=== PATIENT | male | born 1985 | race Caucasian/White ===

== ENCOUNTER 2022-04-15 12:42 | Emergency (ER) | payer SELFPAY ==
[2022-04-15 12:47] VITALS: BP 195/123; PULSE 64; RESP 24; TEMP 36.3; O2SAT 99
--- NOTE | 2022-04-15 12:54 | W.ED.GENADLT ---
HPI - General Adult General: Chief complaint: Urogenital-Male Stated complaint: pain in the stomach and by the kidney Time Seen by Provider: 04/15/22 12:54 History of Present Illness: Mr. Burton is a 36-year-old gentleman without significant past medical history presenting to the emergency department due to abdominal pain. Onset of symptoms was approximately 1 hour prior to arrival where he notes sudden onset right flank pain with radiation to the groin. Since onset symptoms have been constant and severe. Unrelenting. Associated nausea, diaphoresis, vomiting. 1 possible prior episode though no history of diagnosed kidney stones. No other specific changes in health, exacerbating, or alleviating factors identified. Onset (ago): hour(s) Location: abdomen and right Radiation: abdomen Severity: severe Quality: stabbing and sharp Pain Consistency: constant Relieving factors: none Exacerbating factors: none Associated symptoms: Reports nausea and vomiting Review of Systems General: Reports: 10 or more systems reviewed and unremarkable except in HPI and below GI: Reports: nausea and vomiting PFS ED PFSH: Medical History Anxiety Surgical History No significant past surgical history Social History Smoking and tobacco status: never smoked Physical Exam Const: COMMON NORMALS: alert GENERAL APPEARANCE: cooperative, well developed and in distress (pain) HENMT: COMMON NORMALS: normocephalic and atraumatic HEAD & SCALP: normocephalic and atraumatic THROAT: posterior oropharynx normal Eye: COMMON NORMALS: conjunctivae normal CONJUNCTIVA: Yes conjunctivae normal SCLERA: sclerae normal Neck/C-Spine: COMMON NORMALS: supple GENERAL: Yes trachea midline Resp: COMMON NORMALS: clear to auscultation bilaterally EFFORT & INSPECTION: Yes able to speak in complete sentences AUSCULTATION: clear to auscultation bilaterally Cardio: COMMON NORMALS: regular rate and regular rhythm RATE: regular rate RHYTHM: regular rhythm GI: COMMON NORMALS: Soft to palpation PALPATION: Yes Soft to palpation, Yes Tenderness to palpation present (GI), No Guarding due to palpation present (GI) and No Rigid due to palpation Extremity: GENERAL: Yes normal exam except as noted and No edema Neuro: COMMON NORMALS: moves all extremities SENSORIUM/ORIENTATION: Yes alert and No Orientation impaired Psych: COMMON NORMALS: mental status grossly normal and Normal thought process present THOUGHT PROCESS: Normal thought process present Course Vital Signs: Vital signs: Vital Signs Temperature 97.4 F L 04/15/22 12:47 Pulse Rate 88 04/15/22 16:15 Respiratory Rate 16 04/15/22 16:15 Blood Pressure 170/87 04/15/22 16:15 Pulse Oximetry 96 04/15/22 16:15 Oxygen Delivery Me thod 04/15/22 14:45 [facility] - General Adult Medical Decision Making 36-year-old gentleman presenting with abdominal pain that was sudden onset. Appears quite uncomfortable due to pain. No evidence of acute surgical abdomen. No leukocytosis, mild hemoconcentration. No significant metabolic derangement. Urinalysis with hematuria without evidence of urinary tract infection. CT scan notable for ureterolithiasis. Incidental findings discussed. Patient proved with analgesia and antiemetic. He was also given fluids and Flomax upon diagnosis of kidney stone. Mostly etiology of patient's symptoms is ureterolithiasis. Given size of stone and location this will most likely pass on its own however possible need for follow-up with urology was discussed. The results of ED evaluation were discussed with the patient including prescriptions and/or symptomatic cares (if applicable) including appropriate and responsible use, followup plan, and return precautions. The patient verbalized understanding and felt safe for discharge. Medical Records I reviewed the patient's medical records. Lab Data I reviewed the patient's lab results. 04/15/22 13:01 04/15/22 13:01 Radiology Impressions Abdomen/Pelvis CT 04/15/22 13:16 IMPRESSION: 1. Very mild RIGHT hydroureteronephrosis secondary to 4 mm calcification in the distal ureter. 2. Normal appendix. 3. There are additional nonobstructing very tiny, 2 mm, calcifications within the renal pelves. 4. Marked hepatomegaly and hepatic steatosis. Laboratory Results WBC 7.3 10^3/uL (4.0-10.0) 04/15/22 13:01 RBC 5.71 10^6/uL (4.1-5.3) H 04/15/22 13:01 Hgb 16.9 g/dL (11.7-16.6) H 04/15/22 13:01 Hct 52.3 % (42.0-52.0) H 04/15/22 13:01 MCV 91.6 fl (80-94) 04/15/22 13:01 MCH 29.6 pg (28.0-34.0) 04/15/22 13:01 MCHC 32.3 g/dL (30.0-36.0) 04/15/22 13:01 RDW 12.8 % (12.1-15.1) 04/15/22 13:01 Plt Count 251 10^3/cmm (130-400) 04/15/22 13:01 MPV 9.5 fL (7.4-10.4) 04/15/22 13:01 Neut % (Auto) 60.4 % 04/15/22 13:01 Lymph % (Auto) 30.4 % 04/15/22 13:01 [place] % (Auto) 7.6 % 04/15/22 13:01 Eos % (Auto) 0.7 % 04/15/22 13:01 Baso % (Auto) 0.6 % 04/15/22 13:01 Neut # (Auto) 4.40 10^3/uL (1.8-7.7) 04/15/22 13:01 Lymph # (Auto) 2.2 10^3/uL (0.8-4.8) 04/15/22 13:01 [place] # (Auto) 0.6 10^3/uL (0.2-0.9) 04/15/22 13:01 Eos # (Auto) 0.1 10^3/uL (0.0-0.8) 04/15/22 13:01 Baso # (Auto) 0.0 10^3/uL (0.0-0.1) 04/15/22 13:01 Nucleated RBC % (auto) 0 % 04/15/22 13:01 Nucleated RBCs # 0.0 /100WBC 04/15/22 13:01 Sodium 138 mmol/L (136-145) 04/15/22 13:01 Potassium 4.2 mmol/L (3.5-5.1) 04/15/22 13:01 Chloride 96 mmol/L (98-107) L 04/15/22 13:01 Carbon Dioxide 28 mmol/L (22-29) 04/15/22 13:01 Anion Gap 18.2 (5-19) 04/15/22 13:01 BUN 13 mg/dL (6-20) 04/15/22 13:01 Creatinine 1.1 mg/dL (0.7-1.2) 04/15/22 13:01 GFR Calculation 76.2 mL/min (90-130) L 04/15/22 13:01 Glucose 152 mg/dL (65-115) H 04/15/22 13:01 Calculated Osmolality 289 mOsm/kg (285-295) 04/15/22 13:01 Calcium 10.4 mg/dL (8.5-10.5) 04/15/22 13:01 Total Bilirubin 0.4 mg/dL (0.15-1.2) 04/15/22 13:01 AST 43 U/L (0-40) H 04/15/22 13:01 ALT 119 U/L (0-41) H 04/15/22 13:01 Alkaline Phosphatase 98 U/L (40-130) 04/15/22 13:01 Total Protein 8.3 g/dL (6.6-8.7) 04/15/22 13:01 Albumin 5.0 g/dL (3.5-5.2) 04/15/22 13:01 Globulin 3.3 g/dL (1.3-4.6) 04/15/22 13:01 Urine Color Yellow (Yellow) 04/15/22 13:01 Urine Appearance Clear (CLEAR) 04/15/22 13:01 Urine pH 5 (5-7) 04/15/22 13:01 Ur Specific [place] 1.030 (1.005-1.030) 04/15/22 13:01 Urine Protein Neg (Negative) 04/15/22 13:01 Urine Glucose (UA) Norm (Normal) 04/15/22 13:01 Urine Ketones Negative (Negative) 04/15/22 13:01 Urine Blood 3+ (Negative) H 04/15/22 13:01 Urine Nitrate Negative (Negative) 04/15/22 13:01 Urine Bilirubin Neg (Negative) 04/15/22 13:01 Urine Urobilinogen Norm mg/dL (Negative) 04/15/22 13:01 Ur Leukocyte Esterase Negative (Negative) 04/15/22 13:01 Urine RBC 25-40 /hpf (0-2) H 04/15/22 13:01 Urine WBC 0-4 /hpf (0-5) H 04/15/22 13:01 Ur Squamous Epith Cells 0-4 /hpf (0-5) H 04/15/22 13:01 Amorphous Sediment Not Reportable 04/15/22 13:01 Urine Bacteria None /hpf (NONE) 04/15/22 13:01 Discharge Plan Discharge Patient Disposition: Home Clinical Impression: Ureterolithiasis Condition: Stable Prescriptions: New ondansetron 4 mg tablet,disintegrating 4 mg PO Q8H PRN (Reason: nausea and vomiting) Qty: 15 0RF oxycodone 5 mg tablet 5 mg PO Q4H PRN (Reason: pain) Qty: 18 0RF Flomax 0.4 mg capsule 0.4 mg PO .qhs Qty: 20 0RF No Action escitalopram oxalate [Lexapro] 20 mg tablet 20 mg PO DAILY 90 Days Qty: 90 1RF Discharge Orders: Discharge ED (Routine); Ordered 04/15/22 Ordered By: Ankit Lambert Discharge Diet: Usual diet Discharge Activity: Increase activity as tolerated Patient Instructions: Kidney Stones (ED), How to Strain Your Urine (ED), Opioid Safety, Pain Management Activity Restrictions/Additional Instructions: Thank you for visiting the emergency department. You were seen in evaluated for flank pain. You are found to have a kidney stone in the distal ureter which is 4 mm. This should likely pass on its own and we are pleased that your symptoms improved with treatment. Please strain your urine. I will message case management for follow-up with urology. Return to the emergency department for infectious symptoms, uncontrolled symptoms, or anything else that you are concerned about a feel needs emergency department evaluation. Coding Level of Care Code ED [employer] Associate for Jonnie Fwd Exam Comprehensive
[2022-04-15 13:00] VITALS: BP 195/123; PULSE 98; RESP 22; O2SAT 98
[2022-04-15] MEDS: HYDROmorphone 1 mg/mL INJ 1 mL 0.5 MG IVP ×2 (13:09→13:42)
[2022-04-15] MEDS: ondansetron 2 mg/ML SDV 2 mL 4 MG IVP (13:09)
[2022-04-15 13:12] LABS: Add Urine Microscopic? YES; Bilirubin Urine Neg (Negative); Blood Urine 3+ (Negative); Glucose Urine UA Norm (Normal); Ketones Urine Negative (Negative); Leukocyte Esterase Urine Negative (Negative); Nitrate Urine Negative (Negative); Protein Urine Neg (Negative); Urine Appearance Clear (CLEAR); Urine Color Yellow (Yellow); Urobilinogen Urine Norm (Negative); pH Urine 5 (5-7)
[2022-04-15 13:13] LABS: Basophils % 0.6 %; Eosinophils # 0.1 10^3/uL (0.0-0.8); Eosinophils % 0.7 %; Hematocrit 52.3 % (42.0-52.0); Hemoglobin 16.9 g/dL (11.7-16.6); Lymphocytes # 2.2 10^3/uL (0.8-4.8); Lymphocytes % 30.4 %; Mean Corpuscular HGB Conc 32.3 g/dL (30.0-36.0); Mean Corpuscular Hemoglobin 29.6 pg (28.0-34.0); Mean Corpuscular Volume 91.6 fl (80-94); Mean Platelet Volume 9.5 fL (7.4-10.4); Monocytes # 0.6 10^3/uL (0.2-0.9); Monocytes % 7.6 %; Neutrophils % 60.4 %; Nucleated Red Blood Cells % 0 %; Platelet Count 251 10^3/cmm (130-400); Red Blood Count 5.71 10^6/uL (4.1-5.3); Red Cell Distribution Width 12.8 % (12.1-15.1); White Blood Count 7.3 10^3/uL (4.0-10.0)
--- NOTE | 2022-04-15 13:16 | CT_ITS ---
WS: [id number] CT ABDOMEN AND PELVIS NONCONTRAST HISTORY: R flank pain, hematuria TECHNIQUE: Imaging performed through the abdomen and pelvis. Coronal and sagittal reformats are submi tted. All CT scans at [facility] use at least one of these dose optimization techniques: auto mated exposure control; mA and/or kV adjustment per patient size (includes targeted exams where dose is matched to clinical indication); or iterative reconstruction. DLP: 1005.00 mGy.cm COMPARISON: None available. Lower thorax: Lung bases are clear. Visualized heart is normal. No hiatal hernia. Liver: Markedly enlarged liver extends over length of 22.6 cm. Diffuse low attenuation from hepatic s teatosis with areas of sparing. No bile duct dilatation. Gallbladder: Normal gallbladder. Pancreas: Normal size and attenuation. Normal pancreatic duct. No pancreatitis or mass. Spleen: Normal. Adrenal glands: Normal. No mass. Right kidney: Normal size kidney. Very mild dilatation of the renal pelvis and RIGHT ureter with clementina ureteral stranding. 4 mm calcification in the distal ureter. There are a few additional very tiny miladys cifications within the renal pelvis. Left kidney: 2 mm calcification nonobstructing lower pole LEFT kidney. Aorta: Normal abdominal aorta, no aneurysm or atherosclerosis. No free fluid, intraperitoneal air or significant lymphadenopathy. GI tract: Normal appendix. No GI tract obstruction or diverticulosis. Moderately distended stomach wi th fluid. No small bowel obstruction. Abdominal wall: Negative. No hernia. Pelvis: Minimally distended urinary bladder. No adenopathy or free fluid. Osseous structures: Unremarkable. CT/CT kidney stone [id number] IMPRESSION: 1. Very mild RIGHT hydroureteronephrosis secondary to 4 mm calcification in th e distal ureter. 2. Normal appendix. 3. There are additional nonobstructing very tiny, 2 mm, calcifications within the renal pelves. 4. Marked hepatomegaly and hepatic steatosis.
--- NOTE | 2022-04-15 13:19 | PC.NURSE ---
PATIENT GIVEN ZOFRAN AND DILAUDID. PATIENT IMMEDIATELY STARTED VOMITING AND WAS ALSO PRODUCING VERY SMALL AMOUNTS OF BLOOD. PROVIDER NOTIFIED.
[2022-04-15 13:21] LABS: RBC Urine 25-40 /hpf (0-2); Squamous Epithelial Cell Urine 0-4 /hpf (0-5); WBC Urine 0-4 /hpf (0-5)
[2022-04-15 13:23] LABS: Add Urine Culture? Yes
[2022-04-15 13:31] LABS: Alanine Aminotransferase 119 U/L (0-41); Alkaline Phosphatase 98 U/L (40-130); Anion Gap 18.2 (5-19); Aspartate Amino Transferase 43 U/L (0-40); Blood Urea Nitrogen 13 mg/dL (6-20); Calcium 10.4 mg/dL (8.5-10.5); Carbon Dioxide 28 mmol/L (22-29); Chloride 96 mmol/L (98-107); Globulin 3.3 g/dL (1.3-4.6); Glomerular Filtration Rate 76.2 mL/min (90-130); Glucose 152 mg/dL (65-115); Osmolality Calculated 289 mOsm/kg (285-295); Potassium 4.2 mmol/L (3.5-5.1); Sodium 138 mmol/L (136-145); Total Bilirubin 0.4 mg/dL (0.15-1.2); Total Protein 8.3 g/dL (6.6-8.7)
[2022-04-15] MEDS: sodium chloride 0.9% 1,000 ML 999 ML IV (13:42)
[2022-04-15] MEDS: tamsulosin 0.4 mg Capsule PO (13:50)
[2022-04-15] MEDS: ketorolac 30 mg/mL INJ 15 MG IVP (13:51)
[2022-04-15 14:44] VITALS: RESP 18
[2022-04-15] MEDS: oxyCODONE 5 mg IR Tab/Cap PO (14:44)
[2022-04-15 14:45] VITALS: BP 165/109; PULSE 78; RESP 18; O2SAT 97
[2022-04-15] MEDS: fentaNYL 50 mcg/mL INJ 2mL IVP (15:19)
[2022-04-15 16:15] VITALS: BP 170/87; PULSE 88; RESP 16; O2SAT 96
== END 2022-04-15 16:17 | disposition home or self-care (01) ==
PROVIDERS: Emergency Provider Emergency Medicine
DX: N13.2 Hydronephrosis with renal and ureteral calculous obstruction (principal)
CPT/HCPCS: 74176; 80053; 81001; 85025; 87086; 96361; 96374; 96375; 96376; 99285; J1170; J1885; J2405; J3010; J7030

== ENCOUNTER 2023-11-30 06:17 | Emergency (ER) | payer BC, SELFPAY ==
[2023-11-30 06:18] VITALS: BP 190/119; PULSE 83; RESP 18; TEMP 36.7; O2SAT 98; BMI 33.2
[2023-11-30 06:31] VITALS: PULSE 80; O2SAT 97
--- NOTE | 2023-11-30 06:40 | CTR_ITS ---
PROCEDURE INFORMATION: Exam: CT Abdomen And Pelvis Without Contrast Exam date and time: 11/30/2023 6:54 AM Age: 38 years old Clinical indication: Abdominal pain; Flank; Left; Additional info: Left flank pain TECHNIQUE: Imaging protocol: Computed tomography of the abdomen and pelvis without contrast. Radiation optimization: All CT scans at this facility use at least one of these dose optimization techniques: automated exposure control; mA and/or kV adjustment per patient size (includes targeted exams where dose is matched to clinical indication); or iterative reconstruction. COMPARISON: CT kidney stone [id number] 04/15/2022 1:29 PM RADIATION DOSE METRICS: Total DLP (mGy-cm): 893.59 FINDINGS: Lungs: Lung bases are clear as visualized. Heart: Base of heart is unremarkable as visualized. Liver: Hepatomegaly. Gallbladder and biliary ducts: Diffuse hepatic steatosis, focal sparing at gallbladder fossa. Pancreas: Normal. No ductal dilation. Spleen: Normal. No splenomegaly. Adrenal glands: Normal. No mass. Kidneys and ureters: Punctate mineralization within the bilateral renal calices concerning for nonobstructive microlithiasis. Stomach and bowel: Mild fatty metaplasia of the ascending colon. Appendix: No evidence of appendicitis. Intraperitoneal space: Unremarkable. No free air. No significant fluid collection. Vasculature: Calcified pelvic phleboliths. Lymph nodes: Unremarkable. No enlarged lymph nodes. Urinary bladder: Bladder is decompressed. Reproductive: Central dystrophic calcification of the prostate. Bones/joints: Minimal degenerative change of the visualized osseous structures. Soft tissues: Unremarkable. CT/CT abdomen pelvis wo con [id number] IMPRESSION: 1. Bilateral nonobstructive micro-nephrolithiasis. 2. Mild fatty metaplasia of the ascending colon which can be seen in chronic inflammatory states, correlate clinically. 3. Redemonstrated diffuse hepatic steatosis with background hepatomegaly.
[2023-11-30 06:49] LABS: Basophils % 0.9 %; Eosinophils % 0.4 %; Hematocrit 48.2 % (37-53); Lymphocytes # 1.5 10^3/uL (0.8-4.8); Lymphocytes % 32.4 %; Mean Corpuscular HGB Conc 33.8 g/dL (30-55); Mean Corpuscular Hemoglobin 30.8 pg (27-33); Mean Corpuscular Volume 91.1 fl (82-101); Mean Platelet Volume 9.8 fL (7.4-10.4); Monocytes # 0.4 10^3/uL (0.2-0.9); Neutrophils # 2.61 10^3/uL (1.8-7.7); Neutrophils % 57.1 %; Nucleated Red Blood Cells % 0 %; Platelet Count 175 10^3/cmm (157-399); Red Blood Count 5.29 10^6/uL (3.85-5.65); Red Cell Distribution Width 13.2 % (12.1-15.1); White Blood Count 4.57 10^3/uL (3.29-11.43)
[2023-11-30 06:53] VITALS: BP 163/112; PULSE 78; RESP 18; O2SAT 94
--- NOTE | 2023-11-30 06:54 | W.ED.ABDPA2 ---
HPI - Abdominal Pain General: Chief Complaint: Abdominal Pain Stated Complaint: left side kidney pain Time Seen by Provider: 11/30/23 06:36 History of Present Illness: 38-year-old man with history of kidney stones who presents to the emergency room with left flank pain. He says it woke him up in the middle of the night. Has had intermittent intensity but has not ever relented. In the left flank and radiates into the left groin and abdomen area. He has had some nausea and vomiting. No dysuria. No fevers. No chest pain. No altered mental status. Review of Systems Narrative: Constitutional symptoms: Negative except as documented in HPI. Skin symptoms: Negative except as documented in HPI. Eye symptoms: Negative except as documented in HPI. ENMT symptoms: Negative except as documented in HPI. Respiratory symptoms: Negative except as documented in HPI. Cardiovascular symptoms: Negative except as documented in HPI. Gastrointestinal symptoms: Negative except as documented in HPI. Genitourinary symptoms: Negative except as documented in HPI. Musculoskeletal symptoms: Negative except as documented in HPI. Neurologic symptoms: Negative except as documented in HPI. Psychiatric symptoms: Negative except as documented in HPI. Endocrine symptoms: Negative except as documented in HPI. [facility] ED PFSH: Medical History Anxiety Surgical History No significant past surgical history Social History Smoking and tobacco/nicotine status: never used tobacco/nicotine Physical Exam Narrative: EXAM NARRATIVE: General: Alert, no acute distress. Skin: Warm, dry. Head: Normocephalic, atraumatic. Neck: Supple, trachea midline. Eye: Extraocular movements are intact. Ears, nose, mouth and throat: mucosa moist. Cardiovascular: Regular, Normal peripheral perfusion. Respiratory: Lungs are clear to auscultation, respirations are non-labored, breath sounds are equal, Symmetrical chest wall expansion. Gastrointestinal: Soft, left flank pain, Non distended Musculoskeletal: Normal ROM, no deformity. Neurological: Alert and oriented, No focal neurological deficit observed. Psychiatric: Cooperative, appropriate mood & affect. Course Vital Signs: Vital signs: Vital Signs Temperature 98.0 F 11/30/23 06:18 Pulse Rate 78 11/30/23 06:53 Respiratory Rate 22 H 11/30/23 08:32 Blood Pressure 163/112 11/30/23 06:53 Pulse Oximetry 96 11/30/23 08:32 Oxygen Delivery Me thod Room Air 11/30/23 06:53 MDM - Abdominal Pain Medical Decision Making Medical decision making: Differential diagnosis including but not limited to and based on the above HPI, review of systems and physical exam: Ureterolithiasis. Urinary tract infection. Appendicitis. Cholecystis. Musculoskeletal / back pain. Pyelonephritis Orders placed to evaluate differential diagnosis based on the above differential, HPI and physical exam Lab Review: Laboratory results were reviewed and interpreted by myself the emergency room physician. Urinalysis does not show significant hematuria. Lab work is otherwise normal. No renal failure. No leukocytosis. CT of the abdomen pelvis without contrast: There are nonobstructive micro nephrolithiasis but none in the ureters and no hydronephrosis. This was reviewed and interpreted by myself the emergency room physician. I also reviewed the radiology report. I reviewed the patient's medical record. Reexamination: Patient appears improved. No increased work of breathing. No altered mental status. No focal motor deficits. He is had no vomiting. Assessment and plan: Kidney stones -Most likely patient has passed a small kidney stone. ?Fluids, Zofran and Toradol. Patient said he was still having pain so Dilaudid was given - Discharged home - Discussed findings and plan with patient. Answered any questions. - All laboratory values were reviewed and interpreted personally by myself, the ER physician - All imaging was reviewed and interpreted personally by myself, the ER physician. - Evaluation and treatment of this problem were appropriate in the emergency setting Lab Data 11/30/23 06:22 11/30/23 06:22 Labs/Radiology: Radiology Impressions Abdomen/Pelvis CT 11/30/23 06:40 IMPRESSION: 1. Bilateral nonobstructive micro-nephrolithiasis. 2. Mild fatty metaplasia of the ascending colon which can be seen in chronic inflammatory states, correlate clinically. 3. Redemonstrated diffuse hepatic steatosis with background hepatomegaly. Laboratory Results WBC 4.57 10^3/uL (3.29-11.43) 11/30/23 06:22 RBC 5.29 10^6/uL (3.85-5.65) 11/30/23 06:22 Hgb 16.30 g/dL (11.27-16.99) 11/30/23 06:22 Hct 48.2 % (37-53) 11/30/23 06:22 MCV 91.1 fl (82-101) 11/30/23 06:22 MCH 30.8 pg (27-33) 11/30/23 06: MCHC 33.8 g/dL (30-55) 11/30/23 06:22 RDW 13.2 % (12.1-15.1) 11/30/23 06:22 Plt Count 175 10^3/cmm (157-399) 11/30/23 06:22 MPV 9.8 fL (7.4-10.4) 11/30/23 06:22 Neut % (Auto) 57.1 % 11/30/23 06:22 Lymph % (Auto) 32.4 % 11/30/23 06:22 [place] % (Auto) 9.0 % 11/30/23 06:22 Eos % (Auto) 0.4 % 11/30/23 06:22 Baso % (Auto) 0.9 % 11/30/23 06:22 Neut # (Auto) 2.61 10^3/uL (1.8-7.7) 11/30/23 06:22 Lymph # (Auto) 1.5 10^3/uL (0.8-4.8) 11/30/23 06:22 [place] # (Auto) 0.4 10^3/uL (0.2-0.9) 11/30/23 06:22 Eos # (Auto) 0.0 10^3/uL (0.0-0.8) 11/30/23 06:22 Baso # (Auto) 0.0 10^3/uL (0.0-0.1) 11/30/23 06:22 Nucleated RBC % (auto) 0 % 11/30/23 06:22 Nucleated RBCs # 0.0 /100WBC 11/30/23 06:22 Sodium 136 mmol/L (136-145) 11/30/23 06:22 Potassium 4.5 mmol/L (3.5-5.1) 11/30/23 06: Chloride 98 mmol/L (98-107) 11/30/23 06:22 Carbon Dioxide 25 mmol/L (22-29) 11/30/23 06:22 Anion Gap 17.5 (5-19) 11/30/23 06:22 BUN 12 mg/dL (6-20) 11/30/23 06:22 Creatinine 0.9 mg/dL (0.7-1.2) 11/30/23 06:22 GFR Calculation 95.0 mL/min (90-130) 11/30/23 06:22 Glucose 126 mg/dL (65-115) H 11/30/23 06:22 Calculated Osmolality 283 mOsm/kg (285-295) L 11/30/23 06:22 Calcium 9.6 mg/dL (8.5-10.5) 11/30/23 06:22 Total Bilirubin 0.3 mg/dL (0.15-1.2) 11/30/23 06:22 AST 28 U/L (0-40) 11/30/23 06:22 ALT 77 U/L (0-41) H 11/30/23 06:22 Alkaline Phosphatase 92 U/L (40-130) 11/30/23 06:22 Total Protein 8.2 g/dL (6.6-8.7) 11/30/23 06:22 Albumin 4.8 g/dL (3.5-5.2) 11/30/23 06:22 Globulin 3.4 g/dL (1.3-4.6) 11/30/23 06:22 Urine Color Yellow (Yellow) 11/30/23 06:34 Urine Appearance Cloudy (CLEAR) A 11/30/23 06:34 Urine pH 5 (5-7) 11/30/23 06:34 Ur Specific [place] 1.020 (1.005-1.030) 11/30/23 06:34 Urine Protein Trace (Negative) 11/30/23 06:34 Urine Glucose (UA) Norm (Normal) 11/30/23 06:34 Urine Ketones 1+ (Negative) H 11/30/23 06:34 Urine Blood Neg (Negative) 11/30/23 06:34 Urine Nitrate Negative (Negative) 11/30/23 06:34 Urine Bilirubin Neg (Negative) 11/30/23 06:34 Urine Urobilinogen 1 mg/dL (Negative) H 11/30/23 06:34 Ur Leukocyte Esterase Trace (Negative) H 11/30/23 06:34 Urine RBC 0-4 /hpf (0-2) H 11/30/23 06:34 Urine WBC 0-4 /hpf (0-5) H 11/30/23 06:34 Ur Squamous Epith Cells 0-4 /hpf (0-5) H 11/30/23 06:34 Amorphous Sediment 3+ /hpf 11/30/23 06:34 Urine Bacteria Trace /hpf (NONE) 11/30/23 06:34 Urine Mucus 1+ /hpf 11/30/23 06:34 All radiology interpretation(s) finalized by discharge Discharge Plan Discharge Patient Disposition: Home Clinical Impression: Kidney stones Condition: Stable Prescriptions: No Action prednisone 20 mg tablet 40 mg PO DAILY 5 Days Qty: 10 0RF Discharge Orders: Discharge ED (Routine); Ordered 11/30/23 Ordered By: Angela Leonardo Referrals: Luis Daniel Darby [Referring] - (Please call for follow-up with nephrology as you have other stones in your kidneys) Discharge Diet: Usual diet Discharge Activity: Resume usual activity Patient Instructions: Kidney Stones (ED) Coding Level of Care Code ED [employer] Sales Manager for Jonnie Sands
[2023-11-30 06:59] LABS: Alanine Aminotransferase 77 U/L (0-41); Albumin Level 4.8 g/dL (3.5-5.2); Alkaline Phosphatase 92 U/L (40-130); Anion Gap 17.5 (5-19); Aspartate Amino Transferase 28 U/L (0-40); Blood Urea Nitrogen 12 mg/dL (6-20); Calcium 9.6 mg/dL (8.5-10.5); Carbon Dioxide 25 mmol/L (22-29); Chloride 98 mmol/L (98-107); Creatinine Clr Calc Pharmacy 132.3156; Globulin 3.4 g/dL (1.3-4.6); Glucose 126 mg/dL (65-115); Osmolality Calculated 283 mOsm/kg (285-295); Potassium 4.5 mmol/L (3.5-5.1); Sodium 136 mmol/L (136-145); Total Bilirubin 0.3 mg/dL (0.15-1.2); Total Protein 8.2 g/dL (6.6-8.7)
[2023-11-30 07:12] LABS: Blood Urine Neg (Negative); Glucose Urine UA Norm (Normal); Ketones Urine 1+ (Negative); Nitrate Urine Negative (Negative); Protein Urine Trace (Negative); Urine Appearance Cloudy (CLEAR); Urine Color Yellow (Yellow); pH Urine 5 (5-7)
[2023-11-30] MEDS: ketorolac 30 mg/mL INJ IVP (07:12)
[2023-11-30] MEDS: ondansetron 2 mg/ML SDV 2 mL 4 MG IVP (07:12)
[2023-11-30] MEDS: sodium chloride 0.9% 1,000 ML 999 ML IV (07:12)
[2023-11-30 07:13] LABS: Bilirubin Urine Neg (Negative); Leukocyte Esterase Urine Trace (Negative); Urobilinogen Urine 1 mg/dL (Negative)
[2023-11-30 07:18] LABS: Add Urine Culture? No; Amorphous Sediment Urine 3+ /hpf; Bacteria Urine TRACE /hpf; Mucus Urine 1+ /hpf; RBC Urine 0-4 /hpf (0-2); Squamous Epithelial Cell Urine 0-4 /hpf (0-5); WBC Urine 0-4 /hpf (0-5)
[2023-11-30 08:32] VITALS: RESP 22; O2SAT 96
[2023-11-30] MEDS: HYDROmorphone 1 mg/mL INJ 1 mL IVP (08:32)
[2023-11-30 10:09] VITALS: BP 147/85; PULSE 82; RESP 18; O2SAT 98
== END 2023-11-30 10:10 | disposition home or self-care (01) ==
PROVIDERS: Emergency Provider Emergency Medicine
DX: N20.0 Calculus of kidney (principal)
CPT/HCPCS: 74176; 80053; 81001; 85025; 96374; 96375; 99285; J1170; J1885; J2405; J7030